=== PATIENT | male | born 1980 | race Caucasian/White ===

== ENCOUNTER 2017-02-19 13:59 | Emergency (ER) | payer OTHER ==
[2017-02-19 14:52] VITALS: TEMP 97.7; O2SAT 98
--- NOTE | 2017-02-19 14:58 | EDPHY ---
H & P Stated Complaint: kicked in rt eye w cleated shoe during rugby game today Time Seen by Provider: 02/19/17 14:51 HPI/ROS: CHIEF COMPLAINT: Eyelid injury HISTORY OF PRESENT ILLNESS: The patient is a 36-year-old man who was playing rugby. He dove to the ground and the heel of someone's cleats hit him in the eye. He has a laceration to his right lower eyelid. He has a small amount of subconjunctival hematoma. No visible hyphema. He states that his vision is intact. He is wearing a contact in that eye. REVIEW OF SYSTEMS: Constitutional: denies: chills, fever, recent illness, recent injury EENTM: See HPI Respiratory: denies: cough, shortness of breath Cardiac: denies: chest pain, irregular heart rate, lightheadedness, palpitations Gastrointestinal/Abdominal: denies: abdominal pain, diarrhea, nausea, vomiting, blood streaked stools Genitourinary: denies: dysuria, frequency, hematuria, pain Musculoskeletal: denies: joint pain, muscle pain Skin: denies: lesions, rash, jaundice, bruising Neurological: denies: headache, numbness, paresthesia, tingling, dizziness, weakness Hematologic/Lymphatic: denies: blood clots, easy bleeding, easy bruising Immunologic/allergic: denies: HIV/AIDS, transplant EXAM: GENERAL: Well-appearing, well-nourished and in no acute distress. HEAD: Atraumatic, normocephalic. EYES: Right lower eyelid torn from medial aspect laterally. Normal vision. Small subconjunctival hematoma, no hyphema, the contact lens in place. Pupils equal round and reactive to light, extraocular movements intact, sclera anicteric, conjunctiva are normal. ENT: TMs normal, nares patent, oropharynx clear without exudates. Moist mucous membranes. No facial bone tenderness NECK: Normal range of motion, supple without lymphadenopathy or JVD. LUNGS: Breath sounds clear to auscultation bilaterally and equal. No wheezes rales or rhonchi. HEART: Regular rate and rhythm without murmurs, rubs or gallops. ABDOMEN: Soft, nontender, normoactive bowel sounds. No guarding, no rebound. No masses appreciated. BACK: No CVA tenderness, no spinal tenderness, step-offs or deformities EXTREMITIES: Normal range of motion, no pitting or edema. No clubbing or cyanosis. NEUROLOGICAL: Cranial nerves II through XII grossly intact. Normal speech, normal gait. 5/5 strength, normal movement in all extremities, normal sensation PSYCH: Normal mood, normal affect. SKIN: Warm, dry, normal turgor, no visible rashes or lesions. Source: Patient - Personal History Current Tetanus/Diphtheria Vaccine: Unsure Current Tetanus Diphtheria and Acellular Pertussis (TDAP): Unsure - Medical/Surgical History Hx Asthma: No Hx Chronic Respiratory Disease: No Hx Diabetes: No Hx Cardiac Disease: No Hx Renal Disease: No Hx Cirrhosis: No Hx Alcoholism: No Hx HIV/AIDS: No Hx Splenectomy or Spleen Trauma: No Other PMH: HTN - Family History Significant Family History: No pertinent family hx - Social History Smoking Status: Never smoked Alcohol Use: Sober Drug Use: None Constitutional: Initial Vital Signs Temperature (C) 36.7 C 02/19/17 14:02 Heart Rate 92 02/19/17 14:02 Respiratory Rate 16 02/19/17 14:02 Blood Pressure 134/77 H 02/19/17 14:02 O2 Sat (%) 94 02/19/17 14:02 O2 Delivery Mode Room Air Allergies/Adverse Reactions: No Known Allergies Allergy (Unverified 02/19/17 14:02) Home Medications: Medication Instructions Recorded HCTZ (*) 02/19/17 Losartan Potassium 02/19/17 Medical Decision Making ED Course/Re-evaluation: Patient has a significant injury to his lower eyelid involving the tear duct in the corner of his eye. I will call Ophthalmology for repair. We will irrigate his eye and attempt to remove the contact lens. He declines CT imaging to rule out orbital fracture. His extraocular muscles are intact. He denies other injuries. 308 I discussed the case with Dr. Ortega who is on his way to evaluate and repair. He is asking for the eye cart from the OR as well as 6.0 Vicryl and 6.0 fast gut sutures. 5:30 p.m. the patient's eye was repaired by Dr. Ortega. The patient has been given prescriptions for him as well. He is eager to go home and will follow up with plastics. The patient's vision is at baseline. Differential Diagnosis: Partial list of the Differential diagnosis considered include but were not limited to; eyelid injury, eye injury, and although unlikely based on the history and physical exam, I also considered facial fracture, head injury, neck injury. I discussed these differential diagnoses and the plan with the patient as well as the usual and expected course. The patient understands that the diagnosis is provisional and that in medicine we are not always correct and that further workup is often warranted. Usual and customary warnings were given. All of the patient's questions were answered. The patient was instructed to return to the emergency department should the symptoms at all worsen or return, otherwise to followup with the physician as we discussed. - Data Points Medications Given: Discontinued Medications Diphtheria/Tetanus/Acell Pertussis (Boostrix) 0.5 ml IM .ONCE ONE Stop: 02/19/17 16:05 Last Admin: 02/19/17 16:07 Dose: 0.5 ml Proparacaine HCl (Alcaine 0.5%) 1 drops RTEYE ONCE ONE Stop: 02/19/17 16:05 Last Admin: 02/19/17 16:09 Dose: 1 drop Departure - Departure Disposition: [facility] Inpatient Acute Clinical Impression: Eyelid laceration, right Qualifiers: Encounter type: initial encounter Qualified Code(s): S01.111A - Laceration without foreign body of right eyelid and periocular area, initial encounter Condition: Fair Instructions: Facial Laceration (ED) Referrals: Sacha Ortega MD [Medical Doctor] - As per Instructions
[2017-02-19] MEDS ORDERED: PROPARACAINE 0.5% 15 ML OPHT DROP ONE (15:50)
[2017-02-19] MEDS ORDERED: PROPARACAINE 0.5% 15 ML OPHT DROP RTEYE ONE (16:04)
[2017-02-19] MEDS ORDERED: TDAP ADULT 0.5 ML INJ (BOOSTRIX) IM ONE (16:04)
[2017-02-19 17:43] VITALS: BP 130/90; PULSE 88; RESP 14
--- NOTE | 2017-02-19 18:12 | GCON ---
[f rep st] CONSULTATION OPHTHALMOLOGY CONSULTATION DATE OF CONSULTATION: 02/19/2017 Consult was requested by ER staff secondary to periocular trauma. HISTORY OF PRESENT ILLNESS: Patient is a 36-year-old male who was playing rugby today when he susta ined facial injury with the cleat of an opponent's shoe. He traveled to the emergency department an d was triaged. He feels his vision is at baseline, but an eyelid laceration was found that extended from the medial canthus to the middle portion of the right lower eyelid. Patient denies ocular history. He does wear contact lenses. One was in during the injury, however has fallen out since. PHYSICAL EXAMINATION: At bedside, patient has a 15 mm eyelid laceration from the medial canthus to the middle portion of the right lower lid. It does appear to involve the nasolacrimal system. Ther e is avulsion of tissue and poor lid closure. Patient has normal extraocular motility, and vision i s reportedly at baseline per exam priors to loss of the contact. Intraocular pressure is soft to pa lpation. ASSESSMENT: Eyelid laceration involving the nasolacrimal duct and the medial canthus. PLAN: After informed consent was obtained, the patient elected to proceed with the repair of the la ceration. He was made aware that, given the type and location of the injury, there was concern for post-procedure epiphora due to nasolacrimal system involvement. The laceration was repaired in laye rs using 6-0 Vicryl and 6-0 gut. Injected 2% lidocaine was used for anesthesia. Patient tolerated the procedure well, and there were no complications. He was given TobraDex ointment to use b.i.d. t o the affected area. He was given followup information to see Oculoplastics in the next several day s for evaluation of nasolacrimal system involvement and possible repair. /[id number]/MODL
== END 2017-02-19 17:42 | disposition home or self-care (01) ==
PROC: 08QQXZZ Repair Right Lower Eyelid, External Approach (ICD-10-PCS; principal; 2017-02-19)
DX: S01.111A Laceration without foreign body of right eyelid and periocular area, initial encounter (principal); I10 Essential (primary) hypertension; Z23 Encounter for immunization; W51.XXXA Accidental striking against or bumped into by another person, initial encounter; Y99.8 Other external cause status; Y93.63 Activity, rugby